=== PATIENT | male | born 1965 | race Caucasian/White ===

== ENCOUNTER 2022-05-19 13:20 | Outpatient (CLI) | payer BC, SELFPAY ==
[2022-05-19 17:31] LABS: Chloride* 105 mmol/L (96-114); Sodium* 140 mmol/L (135-149)
[2022-05-19 17:34] LABS: Creatinine* 1.1 mg/dL (0.5-1.5); Estimated Glomerular Filt Rate 79 ml/min
[2022-05-19 17:35] LABS: Blood Urea Nitrogen* 30 mg/dL (7-30); Calcium* 9.4 mg/dL (8.4-10.6); Carbon Dioxide* 29 mmol/L (20-32); Glucose* 113 mg/dL (60-115)
== END 2022-05-19 13:21 | disposition home or self-care (01) ==
LOC: NFLDREF 14:40
PROVIDERS: PCP Internal Medicine; Visit Provider Internal Medicine
DX: I10 Essential (primary) hypertension (principal)
CPT/HCPCS: 80048